=== PATIENT | male | born 1995 ===

== ENCOUNTER 2017-05-15 17:36 | Emergency (ER) | payer OTHER ==
[2017-05-15 17:36] VITALS: BMI 22.0
[2017-05-15 18:04] VITALS: RESP 18
--- NOTE | 2017-05-15 19:57 | ED PDOC ---
HPI: Male Pain Time Seen by Provider: 05/15/17 18:49 Chief Complaint (Nursing): Male Genitourinary Chief Complaint (Provider): Male Genitourinary History Per: Patient History/Exam Limitations: no limitations Onset/Duration Of Symptoms: Days (x1 week) Current Symptoms Are (Timing): Still Present Additional Complaint(s): 21 y/o male with no significant pmhx, who presents to the ED urinary frequency x1 week. Patient denies taking any medication for symptoms. Denies fever, chills , nausea, vomiting, flank pain, chest pain, dysuria, hematuria, shortness of breath, or penile discharge. States that he has 2 female sexual partners, but hasnt been with either in 2 months. States that he always uses protection. PMD: None Past Medical History Reviewed: Historical Data, Nursing Documentation, Vital Signs Vital Signs: Last Vital Signs Temp 98.5 F 05/15/17 18:00 Pulse 106 H 05/15/17 18:00 Resp 18 05/15/17 18:00 BP 160/83 H 05/15/17 18:00 Pulse Ox 98 05/15/17 18:00 - Medical History PMH: No Chronic Diseases - Surgical History Surgical History: No Surg Hx - Family History Family History: States: Unknown Family Hx - Social History Current smoker - smoking cessation education provided: No Alcohol: Occasional Drugs: Denies - Home Medications Home Medications: Ambulatory Orders Medication Instructions Recorded Clotrimazole 1% Cream [Lotrimin 1% 1 applic TOP BID #2 tube 10/25/16 CREAM] - Allergies Allergies/Adverse Reactions: Allergies Allergy/AdvReac Type Severity Reaction Status Date / Time No Known Allergies Allergy Verified 10/25/16 12:16 Review of Systems ROS Statement: Except As Marked, All Systems Reviewed And Found Negative Constitutional: Negative for: Fever, Chills Cardiovascular: Negative for: Chest Pain Respiratory: Negative for: Shortness of Breath Gastrointestinal: Negative for: Nausea, Vomiting, Abdominal Pain Genitourinary Male: Positive for: Frequency. Negative for: Dysuria, Hematuria, Penile Discharge Musculoskeletal: Negative for: Back Pain Physical Exam - Reviewed Nursing Documentation Reviewed: Yes Vital Signs Reviewed: Yes - Physical Exam Comments: GENERAL APPEARANCE: Patient is awake, alert, oriented x 3, in no acute distress. SKIN: Warm, dry; (-) cyanosis. EYES: (-) conjunctival pallor, (-) scleral icterus. NECK: Supple, FROM CHEST AND RESPIRATORY: (-) rales, (-) rhonchi, (-) wheezes; breath sounds equal bilaterally. HEART AND CARDIOVASCULAR: (-) irregularity; (-) murmur, (-) gallop. ABDOMEN AND GI: (-) distention. (-) superpubic tenderness, (-) guarding, (-) rebound, (-) palpable masses, (-) CVA tenderness. EXTREMITIES: (-) deformity, (-) edema, (+) distal pulses. NEURO AND PSYCH: Mental status as above; (-) focal findings. MALE GENITALIA: Normal uncircumcised male genitalia, (-) vesicle, (-)ulcers (-) phimosis, (-) paraphimosis, (-) penile discharge, (-) testicle tenderness, (-) scrotal tenderness, (-) palpable masses, (-) epididymis tenderness. - ECG O2 Sat by Pulse Oximetry: 98 (RA) Pulse Ox Interpretation: Normal Medical Decision Making Medical Decision Makin Initial Impression: Dysuria and frequency. Probably UTI. Plan: -Urine culture -Urinalysis -Reevaluation 2030 U/A unremarkable. Given physical exam and negative U/A, patient does not fit clinical picture for STD prophylaxis or UTI treatment as his only complaint is urinary frequency. Lab/Diagnostic results d/w the patient in great detail. Diagnosis of urinary frequency d/w the patient. Based on history, exam and diagnostic results, plan will be for outpatient follow up. VSS. Repeat BP: 143/74. Repeat HR: 82. Patient instructed to follow-up with pmd / referral provided / the clinic in 1- 2 days without fail. Advised to take medication as prescribed. Return to the emergency room at any time for any new or worsening symptoms. Patient states he fully agrees with and understands discharge instructions. States that he agrees with the plan and disposition. Verbalized and repeated discharge instructions and plan. I have given the patient opportunity to ask any additional questions. Scribe Attestation: Documented by Pedro Pablo Rubin, acting as a scribe for Ragini Catalan PA-C. Provider Scribe Attestation: All medical record entries made by the Scribe were at my direction and personally dictated by me. I have reviewed the chart and agree that the record accurately reflects my personal performance of the history, physical exam, medical decision making, and the department course for this patient. I have also personally directed, reviewed, and agree with the discharge instructions and disposition. Disposition - Clinical Impression Clinical Impression: Urinary frequency - Patient ED Disposition Is Patient to be Admitted: No Counseled Patient/Family Regarding: Studies Performed, Diagnosis - Disposition Referrals: [facility] [Outside] Disposition: Routine/Home Disposition Time: 21:28 Condition: STABLE Instructions: General (DC) Forms: [employer] (Bulgarian) Print Language: FILIPINO Results - Lab Results Lab Results: 05/15/17 19:50 Urine Color Straw Urine Clarity Clear Urine pH 7.0 Ur Specific [place] 1.011 Urine Protein Negative Urine Glucose (UA) Neg Urine Ketones Negative Urine Blood Negative Urine Nitrate Negative Urine Bilirubin Negative Urine Urobilinogen 0.2-1.0 Ur Leukocyte Esterase Neg Urine Microscopic WBC < 1 Ur Squamous Epith Cells < 1 Urine Bacteria Rare
[2017-05-15 20:02] LABS: URINE BACTERIA RARE (<OCC); URINE BILIRUBIN NEGATIVE (NEGATIVE); URINE BLOOD NEGATIVE (NEGATIVE); URINE CLARITY CLEAR (Clear); URINE COLOR STRAW (YELLOW); URINE GLUCOSE (UA) NEG (Normal); URINE LEUKOCYTE ESTERASE NEG Leu/uL (Negative); URINE PROTEIN NEGATIVE (NEGATIVE); URINE UROBILINOGEN 0.2-1.0 mg/dL (0.2-1.0)
[2017-05-15 20:05] LABS: SQUAMOUS EPITHIAL < 1 /hpf (0-5)
[2017-05-15 21:47] VITALS: BP 143/74; PULSE 82; TEMP 99.2
[2017-05-16 02:32] VITALS: O2SAT 98
== END 2017-05-15 21:57 | disposition home or self-care (01) ==
LOC: H.ER 17:36
DX: R39.15 Urgency of urination (principal); N39.0 Urinary tract infection, site not specified